=== PATIENT | male | born 1970 | race Caucasian/White ===

== ENCOUNTER 2017-06-23 13:21 | Outpatient (CLI) | payer OTHER ==
[~2017-06-23 13:21] MED LIST: Iopamidol 370 76% 100 ML VIAL ONE
== END 2017-06-23 13:22 | disposition home or self-care (01) ==
LOC: BICCT 13:21
PROVIDERS: ATTEND Urology
DX: R31.0 Gross hematuria (principal); N20.0 Calculus of kidney
CPT/HCPCS: 74178

== ENCOUNTER 2018-04-15 16:00 | Outpatient (CLI) | payer OTHER | END 2018-04-15 16:01 | disposition home or self-care (01) | LOC: SLEEPLAB 16:00 | PROVIDERS: ATTEND Internal Medicine Critical Care Medicine | DX: G47.33 Obstructive sleep apnea (adult) (pediatric) (principal); R53.83 Other fatigue; R06.83 Snoring; E66.9 Obesity, unspecified; Z68.34 Body mass index [BMI] 34.0-34.9, adult | CPT/HCPCS: 95806 ==

== ENCOUNTER 2018-07-01 07:57 | Outpatient (CLI) | payer OTHER ==
--- NOTE | 2018-07-01 08:13 | RAD ---
Abdomen one view HISTORY: Renal stone. COMPARISON: 06/23/2017. FINDINGS: Visualized bowel gas pattern is nonspecific. Tiny rounded hyperdensity projecting over the superior pole of the left renal shadow correlates with the small stone demonstrated on recent CT exam. Right renal shadow is predominantly obscured by bowel content. IMPRESSION: Small nonobstructing left renal calculus.
== END 2018-07-01 07:58 | disposition home or self-care (01) ==
LOC: BICRAD 07:57
PROVIDERS: ATTEND Urology
DX: N20.0 Calculus of kidney (principal)
CPT/HCPCS: 74018

== ENCOUNTER 2019-12-16 13:55 | Outpatient (CLI) | payer OTHER ==
--- NOTE | 2019-12-16 14:11 | RAD ---
EXAM: Single view of the abdomen HISTORY: Gross hematuria. Calculus of the kidney COMPARISON: 07/01/2018 FINDINGS: Single view of the abdomen shows a nonspecific, nonobstructive bowel gas pattern. A 4 mm ca lcification projects over the left renal shadow. IMPRESSION: Left nephrolithiasis
== END 2019-12-16 13:56 | disposition home or self-care (01) ==
LOC: BICRAD 13:55
PROVIDERS: ATTEND Urology
DX: N20.0 Calculus of kidney (principal); R31.0 Gross hematuria
CPT/HCPCS: 36415; 74018; 80048; 81001

== ENCOUNTER 2021-07-24 09:14 | Outpatient (CLI) | payer BC | END 2021-07-24 09:15 | disposition home or self-care (01) | LOC: CTENTCT 09:14 | PROVIDERS: ATTEND Specialist | DX: J32.9 Chronic sinusitis, unspecified (principal) | CPT/HCPCS: 70486 ==

== ENCOUNTER 2021-09-30 06:59 | Outpatient (CLI) | payer BC | END 2021-09-30 07:00 | disposition home or self-care (01) | LOC: LABBT 06:59 | PROVIDERS: ATTEND Specialist | DX: Z01.810 Encounter for preprocedural cardiovascular examination (principal); J34.2 Deviated nasal septum; J34.3 Hypertrophy of nasal turbinates; J32.0 Chronic maxillary sinusitis; J32.1 Chronic frontal sinusitis; J32.2 Chronic ethmoidal sinusitis; Z20.822 Contact with and (suspected) exposure to COVID-19 | CPT/HCPCS: 87811; 93005; 93010 ==

== ENCOUNTER 2021-10-03 09:39 | Day surgery (SDC) | payer BC ==
[2021-10-02 10:55] VITALS: BMI 35.3
[2021-10-03] MEDS ORDERED: Oxymetazoline HCl 0.05% (30 ML BOT) ONE ×2 (09:53→10:05)
[2021-10-03] MEDS ORDERED: Bacitracin Zinc Ointment 30 gm TUBE ONE (09:53)
[2021-10-03] MEDS ORDERED: Lidocaine 1% w/Epinephrine 1:100K 20 ML VIAL ONE (09:53)
[2021-10-03] MEDS ORDERED: PROPOFOL 20 ML ONE (12:05)
[2021-10-03] MEDS ORDERED: fentaNYL Citrate/PF 100 MCG/2 ML SYRINGE ONE (12:05)
[2021-10-03] MEDS ORDERED: SUGAMMADEX SODIUM 200 MG/2 ML VIAL ONE (12:05)
[2021-10-03] MEDS ORDERED: Ondansetron PF 4 MG/2 ML Vial ONE (12:22)
[2021-10-03] MEDS ORDERED: Lidocaine 1% PF 5 ML VIAL ONE (12:22)
[2021-10-03] MEDS ORDERED: Rocuronium Bromide 10 MG/ML (10ML VIAL) ONE (12:22)
[2021-10-03] MEDS ORDERED: PROPOFOL 200 MG/20 ML VIAL ONE (12:22)
[2021-10-03] MEDS ORDERED: methylPREDNISolone Acetate 40 mg/ml Vial ONE (12:51)
[2021-10-03] MEDS ORDERED: Meperidine HCl/PF 25 MG/ML VIAL ONE (13:37)
[2021-10-03] MEDS ORDERED: Fentanyl 100 MCG/2 ML VIAL ONE ×2 (13:44)
[2021-10-03] MEDS ORDERED: HYDROcodone/Acetaminophen 5/325 mg Tablet ONE (14:51)
== END 2021-10-03 15:40 | disposition home or self-care (01) ==
LOC: SDC 09:39
PROVIDERS: ATTEND Specialist
PROC: 8E09XBZ Computer Assisted Procedure of Head and Neck Region (ICD-10-PCS; principal; 2021-10-03)
PROC: 099R8ZZ Drainage of Left Maxillary Sinus, Via Natural or Artificial Opening Endoscopic (ICD-10-PCS; principal; 2021-10-03)
PROC: 09BU8ZZ Excision of Right Ethmoid Sinus, Via Natural or Artificial Opening Endoscopic (ICD-10-PCS; principal; 2021-10-03)
PROC: 09SM0ZZ Reposition Nasal Septum, Open Approach (ICD-10-PCS; principal; 2021-10-03)
PROC: 09BT8ZZ Excision of Left Frontal Sinus, Via Natural or Artificial Opening Endoscopic (ICD-10-PCS; principal; 2021-10-03)
PROC: 09BV8ZZ Excision of Left Ethmoid Sinus, Via Natural or Artificial Opening Endoscopic (ICD-10-PCS; principal; 2021-10-03)
PROC: 09BL8ZZ Excision of Nasal Turbinate, Via Natural or Artificial Opening Endoscopic (ICD-10-PCS; principal; 2021-10-03)
PROC: 09U Ear, Nose, Sinus, Supplement (ICD-10-PCS; principal; 2021-10-03)
PROC: 09BS8ZZ Excision of Right Frontal Sinus, Via Natural or Artificial Opening Endoscopic (ICD-10-PCS; principal; 2021-10-03)
PROC: 09U Ear, Nose, Sinus, Supplement (ICD-10-PCS; principal; 2021-10-03)
PROC: 099Q8ZZ Drainage of Right Maxillary Sinus, Via Natural or Artificial Opening Endoscopic (ICD-10-PCS; principal; 2021-10-03)
DX: J32.8 Other chronic sinusitis (principal); J01.91 Acute recurrent sinusitis, unspecified; J34.2 Deviated nasal septum; J34.3 Hypertrophy of nasal turbinates; E78.00 Pure hypercholesterolemia, unspecified; I10 Essential (primary) hypertension; Z79.899 Other long term (current) drug therapy; Z88.0 Allergy status to penicillin; Z88.2 Allergy status to sulfonamides
CPT/HCPCS: J2175; J2405; J2704; J2920; J3010

== ENCOUNTER 2022-01-29 17:30 | Outpatient (CLI) | payer BC | END 2022-01-29 17:31 | disposition home or self-care (01) | LOC: SLEEPLAB 17:30 | PROVIDERS: ATTEND Internal Medicine Critical Care Medicine | DX: G47.33 Obstructive sleep apnea (adult) (pediatric) (principal); R06.83 Snoring; I10 Essential (primary) hypertension; J45.909 Unspecified asthma, uncomplicated; Z98.890 Other specified postprocedural states | CPT/HCPCS: 95800 ==

== ENCOUNTER 2023-04-25 15:00 | Emergency (ER) | payer BC ==
[2023-04-25] MEDS ORDERED: Lidocaine 1% (PF) 30 ML VIAL ONE (16:27)
[2023-04-25] MEDS ORDERED: Cephalexin 250 MG CAP ONE (17:55)
[2023-04-25] MEDS ORDERED: traMADol HCl 50 MG TAB ONE (18:07)
== END 2023-04-25 18:20 | disposition home or self-care (01) ==
LOC: ERS 15:00
DX: S62.630B Displaced fracture of distal phalanx of right index finger, initial encounter for open fracture (principal); E78.5 Hyperlipidemia, unspecified; I10 Essential (primary) hypertension; W31.2XXA Contact with powered woodworking and forming machines, initial encounter
CPT/HCPCS: 26750; J2001

== ENCOUNTER 2023-04-28 14:04 | Day surgery (SDC) | payer BC ==
[2023-04-27 13:27] VITALS: BMI 33.5
[2023-04-28 16:01] LABS: #Basophils 0.1 thou/uL (0.0-0.2); #Eosinphils 0.1 thou/uL (0.0-0.7); #Monocytes 0.8 thou/uL (0.11-0.59); #Neutrophils 8.3 thou/uL (1.40-6.50); %Basophils 0.6 % (0.0-1.0); %Eosinophils 0.9 % (0.0-10.0); %Lymphocytes 27.2 % (21.0-51.0); %Monocytes 6.6 % (0.0-10.0); %Neutrophils 64.4 % (42.0-75.0); Hematocrit 47.7 % (42.0-52.0); Mean Corpuscular HGB CONC 33.5 g/dL (32.0-36.0); Mean Corpuscular Hemoglobin 29.4 pg (27.0-31.0); Mean Corpuscular Volume 87.7 fl (78.0-98.0); Mean Platelet Volume 11.3 fL (7.4-10.4); Platelet Count 252 10x3/uL (130-400); RBC Distribution Width 13.7 % (11.5-14.5); Red Blood Cell (RBC) Count 5.44 mill/uL (4.70-6.10); White Blood Cell (WBC) Count 12.8 10x3/uL (4.8-10.8)
[2023-04-28] MEDS ORDERED: PROPOFOL 80 ML ONE (16:41)
[2023-04-28] MEDS ORDERED: Lidocaine 1% PF 5 ML VIAL ONE (16:41)
[2023-04-28] MEDS ORDERED: Ondansetron PF 4 MG/2 ML Vial ONE (16:41)
[2023-04-28] MEDS ORDERED: fentaNYL PF 100 MCG/2 ML SYRINGE ONE (16:41)
[2023-04-28] MEDS ORDERED: Dexamethasone 4 mg/ml Vial ONE (16:41)
[2023-04-28] MEDS ORDERED: Bacitracin Zinc Ointment 30 gm TUBE ONE (17:13)
[2023-04-28] MEDS ORDERED: Mineral Oil Sterile 10 ML VIAL ONE (17:13)
[2023-04-28] MEDS ORDERED: Bupivacaine PF 0.5% 30 ML VIAL ONE (17:13)
[2023-04-28] MEDS ORDERED: Thrombin 5000 UNITS/5 ML VIAL ONE (17:13)
[2023-04-28] MEDS ORDERED: Sevoflurane 250 ML INH ANEST BOTTLE ONE (17:19)
[2023-04-28] MEDS ORDERED: Sodium Chloride 0.9% 100 ML ONE (17:21)
[2023-04-28] MEDS ORDERED: CEFAZOLIN 2 GM VIAL ONE (17:21)
[2023-04-28] MEDS ORDERED: Ketorolac Tromethamine 30 MG (1 mL) VIAL ONE (18:37)
[2023-04-28] MEDS ORDERED: fentaNYL 50 mcg/mL 1 mL Vial ONE (18:58)
[2023-04-28] MEDS ORDERED: HYDROcodone/Acetaminophen 5/325 mg Tablet ONE (19:23)
== END 2023-04-28 20:08 | disposition home or self-care (01) ==
LOC: SDC 14:04
PROVIDERS: ATTEND Orthopaedic Surgery Hand Surgery
PROC: 0HRFX73 Replacement of Right Hand Skin with Autologous Tissue Substitute, Full Thickness, External Approach (ICD-10-PCS; principal; 2023-04-28)
PROC: 0PBT0ZZ Excision of Right Finger Phalanx, Open Approach (ICD-10-PCS; principal; 2023-04-28)
DX: S61.300A Unspecified open wound of right index finger with damage to nail, initial encounter (principal); I10 Essential (primary) hypertension; E78.5 Hyperlipidemia, unspecified; I25.10 Atherosclerotic heart disease of native coronary artery without angina pectoris; G47.33 Obstructive sleep apnea (adult) (pediatric); J45.909 Unspecified asthma, uncomplicated; M10.9 Gout, unspecified; E11.9 Type 2 diabetes mellitus without complications; Z79.899 Other long term (current) drug therapy; Z79.84 Long term (current) use of oral hypoglycemic drugs; Z88.0 Allergy status to penicillin; Z88.2 Allergy status to sulfonamides; W31.2XXA Contact with powered woodworking and forming machines, initial encounter
CPT/HCPCS: 85025; 93005; 93010; A6258; J0665; J1100; J1885; J2405; J2704; J3010; J3490

== ENCOUNTER 2023-08-19 11:56 | Outpatient (CLI) | payer BC | END 2023-08-19 11:57 | disposition home or self-care (01) | LOC: BICRAD 11:56 | PROVIDERS: ATTEND Urology | DX: Z12.5 Encounter for screening for malignant neoplasm of prostate (principal); N20.0 Calculus of kidney; N30.80 Other cystitis without hematuria; M1A.9XX0 Chronic gout, unspecified, without tophus (tophi); Z87.448 Personal history of other diseases of urinary system | CPT/HCPCS: 74018 ==

== ENCOUNTER 2024-03-03 15:26 | Outpatient (CLI) | payer BC | END 2024-03-03 15:27 | disposition home or self-care (01) | LOC: BICCT 15:26 | PROVIDERS: ATTEND Urology | DX: N13.2 Hydronephrosis with renal and ureteral calculous obstruction (principal) | CPT/HCPCS: 74176 ==

== ENCOUNTER 2024-03-07 16:22 | Outpatient (CLI) | payer BC ==
[2024-03-07 16:51] LABS: #Basophils 0.11 10x3/uL (0.0-0.2); %Eosinophils 2.2 % (0.0-10.0); %Lymphocytes 36.5 % (21.0-51.0); %Monocytes 8.4 % (0.0-10.0); %Neutrophils 51.5 % (42.0-75.0); Hematocrit 45.9 % (42.0-52.0); Hemoglobin 15.3 g/dL (14.0-18.0); Mean Corpuscular HGB CONC 33.3 g/dL (32.0-36.0); Mean Corpuscular Hemoglobin 28.9 pg (27.0-31.0); Mean Corpuscular Volume 86.6 fL (78.0-98.0); Mean Platelet Volume 10.8 fL (7.4-10.4); Platelet Count 247 10x3/uL (130-400); RBC Distribution Width 13.6 % (11.5-14.5)
[2024-03-07 17:04] LABS: INR-International Normal Ratio 0.9; PTT 26.8 sec (22.9-36.1); Prothrombin Time 12.6 sec (12.0-14.7)
[2024-03-07 17:15] LABS: Anion Gap 12 mmol/L (10-20); BUN (Urea Nitrogen) 16 mg/dL (8.4-25.7); Calc. Creatinine Clearance 0 mL/min (70-130); Calcium 9.6 mg/dL (7.8-10.44); Carbon Dioxide 28 mmol/L (22-29); Chloride 103 mmol/L (98-107); Estimated GFR 99; Glucose 161 mg/dL (70-105); Potassium 3.3 mmol/L (3.5-5.1); Sodium 140 mmol/L (136-145)
[2024-03-07 17:38] LABS: Bacteria/HPF None Seen HPF (None Seen); Bilirubin Negative (Negative); Blood, Urine 3+ (Negative); Clarity Clear (Clear); Glucose, Urine (Dipstick) 50 mg/dL (Negative); Ketone, Urine Negative (Negative); Leukocyte Negative Leu/uL (Negative); Nitrite Negative (Negative); Protein, Urine (Dipstick) Negative (Neg-Trace); RBC/HPF Greater than 50 HPF (0-3); Squamous Epithelial 0-3 HPF (0-3); Urobilinogen Normal mg/dL (Less than 2); WBC/HPF 0-3 HPF (0-3); pH, Urine 6.5 (5.0-9.0)
== END 2024-03-07 16:23 | disposition home or self-care (01) ==
LOC: LABBT 16:22
PROVIDERS: ATTEND Urology
DX: Z01.818 Encounter for other preprocedural examination (principal); N20.0 Calculus of kidney
CPT/HCPCS: 80048; 81001; 85025; 85610; 85730; 87086; 93005; 93010

== ENCOUNTER 2024-03-14 05:57 | Day surgery (SDC) | payer BC ==
[2024-03-07 16:36] VITALS: BMI 35.3
[2024-03-14] MEDS ORDERED: LevoFLOXacin D5W 500 mg (100 mL) BAG ONE (07:09)
[2024-03-14] MEDS ORDERED: Midazolam HCl 2 mg/2 ml Vial ONE (07:56)
[2024-03-14] MEDS ORDERED: fentaNYL PF 100 MCG/2 ML SYRINGE ONE (07:56)
[2024-03-14] MEDS ORDERED: PROPOFOL 20 ML ONE (07:56)
[2024-03-14] MEDS ORDERED: Iopamidol 15 ML ONE ×2 (08:13→08:50)
[2024-03-14] MEDS ORDERED: Ondansetron PF 4 MG/2 ML Vial ONE (09:12)
[2024-03-14] MEDS ORDERED: Dexamethasone 20 MG/5 ML VIAL ONE (09:12)
[2024-03-14] MEDS ORDERED: Rocuronium Bromide 10 MG/ML (10ML VIAL) ONE (09:12)
[2024-03-14] MEDS ORDERED: Lidocaine 1% PF 5 ML VIAL ONE (09:12)
[2024-03-14] MEDS ORDERED: SUGAMMADEX SODIUM 200 MG/2 ML VIAL ONE (09:51)
[2024-03-14] MEDS ORDERED: Phenazopyridine HCl 100 MG TAB ONE (10:20)
[2024-03-14] MEDS ORDERED: fentaNYL 50 mcg/mL 1 mL Vial ONE ×2 (10:21→10:41)
== END 2024-03-14 12:11 | disposition home or self-care (01) ==
LOC: SDC 05:57 → SURG A 06:05 → UNDOADMIN 06:05 → SDC 12:11 → UNDODISIN 12:11
PROVIDERS: ATTEND Urology
DX: N20.2 Calculus of kidney with calculus of ureter (principal); N40.0 Benign prostatic hyperplasia without lower urinary tract symptoms; N30.80 Other cystitis without hematuria; I10 Essential (primary) hypertension; E11.9 Type 2 diabetes mellitus without complications; E78.00 Pure hypercholesterolemia, unspecified; J45.909 Unspecified asthma, uncomplicated; G47.33 Obstructive sleep apnea (adult) (pediatric); M1A.9XX0 Chronic gout, unspecified, without tophus (tophi); Z88.2 Allergy status to sulfonamides; Z88.0 Allergy status to penicillin; Z79.899 Other long term (current) drug therapy
CPT/HCPCS: 74018; 74420; C1747; C1769; C2617; J1100; J1956; J2250; J2405; J2704; J3010; Q9967